=== PATIENT | male | born 1970 | race Two or more races ===

== ENCOUNTER 2018-09-23 15:07 | Emergency (ER) | payer SELFPAY ==
[~2018-09-23] VITALS: Ht 180.3 cm; Wt 104.3 kg
[2018-09-23 15:25] VITALS: BP 128/81
== END 2018-09-23 16:18 | disposition left against medical advice (07) ==
LOC: ER 15:07 → EDBD 15:07 → ER 16:18
DX: M79.671 Pain in right foot (principal); Z53.21 Procedure and treatment not carried out due to patient leaving prior to being seen by health care provider